=== PATIENT | female | born 1995 | race Caucasian/White ===

== ENCOUNTER 2016-11-14 23:25 | Emergency (ER) | payer OTHER ==
[~2016-11-14] VITALS: Ht 160 cm; Wt 54.5 kg
[2016-11-14 23:28] VITALS: TEMP 98.2
[2016-11-15] MEDS ORDERED: ULTRAM 50MG TAB50 MG PO (00:15)
[2016-11-15 00:32] VITALS: BP 122/76; PULSE 110
== END 2016-11-15 00:33 | disposition home or self-care (01) ==
LOC: COL.ER 23:25
DX: S62.393A Other fracture of third metacarpal bone, left hand, initial encounter for closed fracture (principal); W51.XXXA Accidental striking against or bumped into by another person, initial encounter; Y92.830 Public park as the place of occurrence of the external cause